=== PATIENT | female | born 1995 | race American Indian/Alaskan Native ===

== ENCOUNTER 2017-08-26 21:49 | Emergency (ER) | payer BC ==
[2017-08-26] MEDS ORDERED: LACTATED RINGERS 500 ML IV ONE (22:10)
[2017-08-27] MEDS ORDERED: TYLENOL PO ONE (01:27)
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
[2017-08-27] MEDS ORDERED: TYLENOL ONE (01:31)
[2017-08-27 06:07] VITALS: BP 136/81
== END 2017-08-27 01:58 | disposition home or self-care (01) ==
LOC: TRG 21:49 → ED 21:49 → TRG 21:58 → ED 21:58 → TRG 22:40 → ED 08-27 01:58
DX: O9A.212 Injury, poisoning and certain other consequences of external causes complicating pregnancy, second trimester (principal); M54.9 Dorsalgia, unspecified; Z3A.24 24 weeks gestation of pregnancy
CPT/HCPCS: 59025; 99282